=== PATIENT | female | born 1990 | race Two or more races ===

== ENCOUNTER 2021-06-30 18:42 | Observation (INO) | payer OTHER ==
[~2021-06-30] VITALS: Ht 170.2 cm; Wt 87.1 kg
[2021-06-30 19:47] LABS: Urine Bacteria FEW /hpf (None Seen); Urine Blood Negative /uL (Negative); Urine Mucus FEW (None Seen); Urine Specific Gravity 1.034 (1.001-1.035); Urine WBC 7 /hpf (0 - 5)
[2021-06-30] MEDS ORDERED: PREN1CAP PO (20:25)
[2021-06-30] MEDS ORDERED: MULT1TAB95 PO (20:26)
== END 2021-06-30 20:59 | disposition home or self-care (01) ==
LOC: LDRP 18:42
PROVIDERS: ADMIT Obstetrics & Gynecology; ATTEND Obstetrics & Gynecology
DX: O26.892 Other specified pregnancy related conditions, second trimester (principal); R10.2 Pelvic and perineal pain; Z3A.22 22 weeks gestation of pregnancy
CPT/HCPCS: 59025; 76815; 81001; 81002; G0378